=== PATIENT | female | born 1960 | race Caucasian/White ===

== ENCOUNTER → 2021-04-06 | Outpatient (CLI) | payer BC ==
[~2021-04-06] MED LIST: DAILY VITAMIN1 EAC2 PO; ECOTRIN81 MG PO; IBUPROFEN800 MG PO; KEFLEX CAP 500500 MG PO; NABUMETONE500 MG PO; NORCO 7.5-3251 EACH PO; SYNTHROID125 MCG PO; VITAMIN C500 M1 PO; VITAMIN D250000 UNIT PO; ZOFRAN4 MG PO
== END ==
LOC: MAMO 11:03
DX: Z12.31 Encounter for screening mammogram for malignant neoplasm of breast (principal)
CPT/HCPCS: 77063; 77067

== ENCOUNTER → 2021-11-21 | Outpatient (CLI) | payer BC | LOC: KOH-I 10:57 | DX: M79.672 Pain in left foot (principal); M25.572 Pain in left ankle and joints of left foot; M19.072 Primary osteoarthritis, left ankle and foot | CPT/HCPCS: 73610; 73630 ==

== ENCOUNTER → 2021-12-22 | Outpatient (CLI) | payer BC | LOC: KOH-I 13:29 | DX: Z53.9 Procedure and treatment not carried out, unspecified reason (principal) | CPT/HCPCS: 73630 ==

== ENCOUNTER 2022-01-31 18:14 | Emergency (ER) | payer BC | END 2022-01-31 20:45 | disposition home or self-care (01) | LOC: ER1 18:14 | DX: M25.551 Pain in right hip (principal); G89.29 Other chronic pain; E11.9 Type 2 diabetes mellitus without complications | CPT/HCPCS: 73502; 81001; 99283 ==

== ENCOUNTER → 2022-02-01 | Outpatient (CLI) | payer BC | LOC: KOH-I 13:18 | DX: S92.242A Displaced fracture of medial cuneiform of left foot, initial encounter for closed fracture (principal); M19.072 Primary osteoarthritis, left ankle and foot; M20.32 Hallux varus (acquired), left foot | CPT/HCPCS: 73630 ==

== ENCOUNTER → 2022-04-18 | Outpatient (CLI) | payer BC | LOC: KOH-I 08:33 | DX: M79.672 Pain in left foot (principal); M25.572 Pain in left ankle and joints of left foot; M19.072 Primary osteoarthritis, left ankle and foot; Z98.890 Other specified postprocedural states | CPT/HCPCS: 73610; 73630 ==